=== PATIENT | male | born 1965 ===

== ENCOUNTER 2023-10-01 08:17 | Day surgery (SDC) | payer OTHER ==
[2023-10-01] VITALS (14 sets, daily range): BP systolic 102–143; BP diastolic 66–93
[~2023-10-01] VITALS: Ht 170.2 cm; Wt 62.2 kg
[~2023-10-01 08:17] MED LIST: Lactated Ringer's 1,000 ML IV SCH
--- NOTE | 2023-10-01 09:02 | NUR ---
History, Chart, Medications and Allergies reviewed before start of procedure. Lungs clear T/O to Auscultation. Patient states colon prep results clear. Pre-Op teaching done. Pt verbalizes understanding. Patient States Post-Procedure ride home has been arranged.
[2023-10-01] MEDS ORDERED: propofoL 20 ML IV ONE (09:46)
--- NOTE | 2023-10-01 09:57 | NUR ---
10/01/23 0957 Jessica Sanchez HISTORY, CHART, MEDICATIONS AND ALLERGIES REVIEWED BEFORE START OF PROCEDURE. PATIENT CONFIRMS NPO STATUS AND AGREES WITH SCHEDULED PROCEDURE. 3-LEAD EKG REVIEWED WITH PHYSICIAN PRIOR TO START OF PROCEDURE. MONITOR INTACT WITH CONTINUOUS PULSE OXIMETRY,CAPNOGRAPHY, 3-LEAD EKG, INTERMITTENT BP. SUPPLEMENTAL O2 TO BE TITRATED THROUGHOUT PROCEDURE TO MAINTAIN O2 SATURATION ABOVE 90%. PATIENT DETERMINED TO BE ASA APPROPRIATE FOR PROPOFOL SEDATION PRIOR TO START OF PROCEDURE BY .
--- NOTE | 2023-10-01 10:47 | NUR ---
Patient up to Ambulate independently. Gait steady. Discharge instructions reviewed with patient. Patient verbalizes understanding. Copy given to patient to take home, [facility]. Patient States Post-Procedure ride home has been arranged. Discharged via wheelchair to private car for ride home.
== END 2023-10-01 10:47 | disposition home or self-care (01) ==
LOC: ORSCMMR 08:17 → ORD 09:30 → ORSCMMR 10:47
PROVIDERS: Internal Medicine Gastroenterology
PROC: 0DBP8ZX Excision of Rectum, Via Natural or Artificial Opening Endoscopic, Diagnostic (ICD-10-PCS; principal; 2023-10-01 09:30)
PROC: 0DBH8ZX Excision of Cecum, Via Natural or Artificial Opening Endoscopic, Diagnostic (ICD-10-PCS; principal; 2023-10-01 09:30)
DX: Z12.11 Encounter for screening for malignant neoplasm of colon (principal); Z80.0 Family history of malignant neoplasm of digestive organs; D12.0 Benign neoplasm of cecum; K62.1 Rectal polyp; I10 Essential (primary) hypertension
CPT/HCPCS: 88305; J2704; J7120